=== PATIENT | male | born 1995 | race Two or more races ===

== ENCOUNTER 2024-12-09 02:23 | Emergency (ER) | payer OTHER ==
[~2024-12-09] VITALS: Ht 190.5 cm; Wt 107.3 kg
--- NOTE | 2024-12-09 02:51 | ED.PDOC ---
Back pain HPI HPI Comments C/C: LOWER BACK PAIN SINCE LAST NIGHT AROUND 1700. PATIENT STATES THAT IT IS HARD TO GET UP FROM SITTING OR LAYING POSITION. DENIES TRAUMA OR STRAIN. PER PATIENT, PAIN DOES NOT RADIATE. ALL VSS DENIES NUMBNESS, WEAKNESS, LOSS OF BOWEL BLADDER CONTROL OR SADDLE ANESTHESIA. Time Seen by MD: 02:26 Reviewed Notes: Nurses Notes, Medications, Allergies Allergies: Coded Allergies: NO KNOWN ALLERGIES (Unverified , 12/09/24) Information Source: Patient Past Medical History PAST MEDICAL HISTORY: Denies Surgical History: Denies all surgeries Family History Family History: Reviewed,noncontributory to illness Social History Smoker: Non-Smoker Alcohol: Denies ETOH Use Drugs: Denies Drug Use Constitutional: denies: chills, diaphoresis, fatigue, fever, malaise, sweats, weakness, others EENTM: denies: blurred vision, double vision, ear bleeding, ear discharge, ear drainage, ear pain, ear ringing, eye pain, eye redness, hearing loss, mouth pain, mouth swelling, nasal discharge, nose bleeding, nose congestion, nose pain, photophobia, tearing, throat pain, throat swelling, voice changes, others Respiratory: denies: cough, hemoptysis, orthopnea, SOB at rest, shortness of breath, SOB with excertion, stridor, wheezing, others Cardiovascular: denies: chest pain, dizzy spells, diaphoresis, Dyspnea on exertion, edema, irregular heart beat, left arm pain, lightheadedness, palpita tions, PND, syncope, others Gastrointestinal: denies: abdomen distended, abdominal pain, blood streaked nuvia wels, constipated, diarrhea, dysphagia, difficulty swallowing, hematemesis, melena, nausea, poor appetite, poor fluid intake, rectal bleeding, rectal pain, vomiting, others Genitourinary: denies: burning, dysuria, flank pain, frequency, hematuria, incontinence, penile discharge, penile sore, pain, testicle pain, testicle swelling, urgency, others Neurological: denies: dizziness, fainting, headache, left sided numbness, left sided weakness, numbness, paresthesia, pre-existing deficit, right sided numbness, right sided weakness, seizure, speech problems, tingling, tremors, weakness, others Musculoskeletal: reports: back pain; denies: gout, joint pain, joint swelling, muscle pain, muscle stiffness, neck pain, others Integumetry: denies: bruises, change in color, change in hair/nails, dryness, laceration, lesions, lumps, rash, wounds, others Allergic/Immunocompromised: denies: Difficulty Healing, Frequent Infections, Hives, Itching, others Hematologic/Lymphatic: denies: anemia, blood clots, easy bleeding, easy bruising, swollen glands, others Endocrine: denies: excessive hunger, excessive sweating, excessive thirst, excessive urination, flushing, intolerance to cold, intolerance to heat, unexplained weight gain, unexplained weight loss, others Psychiatric: denies: anxiety, bipolar disorder, depression, hopeless, panic dis order, schizophrenia, sleepless, suicidal, others Physical Exam General Appearance: No Apparent Distress, Normal HEENT: Pharynx Normal Neck: Full Range of Motion, Non-Tender Respiratory: Lungs Clear, No Respiratory Distress, Normal Breath Sounds Cardiovascular: No Murmur, Normal Peripheral Pulses, Regular Rate/Rhythm Breast Exam: Deferred Gastrointestinal: Non Tender, Soft Genitalia: Deferred Pelvic: Deferred Rectal: Deferred Extremities: Normal capillary refill, Normal inspection, Normal range of motion, Non-tender, No pedal edema Musculoskeletal : Location: Left Extremity Location: Back (MODERATE TENDERNESS ON PALPATION LEFT LOWER BACK MUSCULATURE NOTED TENDERNESS L 1 THROUGH L3 LEFT SIDE PARASPINAL MUSCLES. STRENGTH SENSORY MOTION INTACT.) Apperance: Normal Neurologic: Alert, No Motor Deficits, Normal Affect, Normal Mood, No Sensory Deficits Cerebellar Function: Normal Reflexes: Normal Skin: Dry, Normal Color, Warm Lymphatic: No Adenopathy Was a procedure done? Was a procedure done?: No Back Pain Differential Dx Differential Diagnosis: Fracture, Musculoskeletal Pain X-Ray, Labs, Meds, VS Vital Signs Date Time Temp Pulse Resp B/P (MAP) Pulse Ox O2 Delivery O2 Flow Rate FiO2 12/09/24 03:27 98.0 84 16 128/87 (101) 97 98.0 12/09/24 03:27 84 16 97 Room Air* 0 21 12/09/24 03:27 98.0 84 16 128/87 (101) 97 98.0 X-Ray, Labs, Meds, VS Comment LUMBAR SPINE X-RAY SHOWS NO ACUTE FRACTURES, OSSEOUS LESIONS, SUBLUXATIONS. LIKELY LUMBAR MUSCLE STRAIN. PATIENT GIVEN TORADOL 60 MG IM, DECADRON 10 MG IM, AND PERCOCET 10 MG P.O. REPORTS IMPROVEMENT IN PAIN AND FUNCTION REQUESTING DISCHARGE AT THIS TIME. SCRIPT TRIAL OF MUSCLE RELAXER AND MEDROL DOSEPAK ADVISED TO TAKE MEDICATIONS PRESCRIBED SIDE EFFECTS DISCUSSED. DISCUSSED ALTERNATING BETWEEN ICE AND HEAT. FOLLOW UP WITH YOUR PCP IN 2-3 DAYS N ECESSARY IF PAIN PERSISTS CONSIDER FURTHER IMAGING SUCH MRI. ADVISED ON ER RETURN PRECAUTIONS SUCH LOSS OF BOWEL BLADDER CONTROL SADDLE ANESTHESIA OR ANY CONCERNING SYMPTOMS. PATIENT INDICATES UNDERSTANDING AND AGREES WITH DISCHARGE PLAN OF CARE. Time of 1ST Reevaluation: 02:48 Reevaluation 1ST: Unchanged Time of 2ND Reevaluation: 05:25 Reevaluation 2ND: Improved Patient Education/Counseling: Diagnosis, Treatment, Prognosis, Need For Follow Up Family Education/Counseling: Diagnosis, Treatment, Prognosis, Need For Follow Up SEPSIS Sepsis Screen Physician Orders Lumbar Spine 3 View (12/09/24 02:51) Vital Signs Date Time Temp Pulse Resp B/P (MAP) Pulse Ox O2 Delivery O2 Flow Rate FiO2 12/09/24 03:27 98.0 84 16 128/87 (101) 97 98.0 12/09/24 03:27 84 16 97 Room Air* 0 21 12/09/24 03:27 98.0 84 16 128/87 (101) 97 98.0 Departure 1 Departure Time of Disposition: 05:26 Impression: Primary Impression: Lumbar sprain Qualified Codes: S33.5XXA - Sprain of ligaments of lumbar spine, initial encounter Disposition: HOME / SELF CARE / HOMELESS Condition: Stable e-Prescriptions Methylprednisolone (Medrol Dosepak) 4 Mg Rod 4 MG PO UD for 6 Days, #21 TAB UAD Prov: KATH PAINTING 12/09/24 Tizanidine Hydrochloride (Tizanidine Hcl) 4 Mg Tab 4 MG PO BID PRN for 5 Days, #10 TAB Prov: KATH PAINTING 12/09/24 Discharged With: Spouse Critical Care Note Critical Care Time?: No Stability Stability form required: KATH Soria Dec 09, 2024 02:51
[2024-12-09 03:27] VITALS: PULSE 84; RESP 16; O2SAT 97
--- NOTE | 2024-12-09 03:34 | DVH ---
INDICATION: LOW BACK PAIN COMPARISON: None TECHNIQUE: 2 views of the lumbar spine were obtained. FINDINGS: The lumbar vertebral alignment is normal. The intervertebral disc spaces are well-maintained. No significant facet arthropathy is noted. No acute fracture, vertebral compression deformity or aggressive osseous lesions. The paravertebral soft tissues are grossly unremarkable. IMPRESSION: 1. No acute fracture.
[2024-12-09 05:23] VITALS: BP 145/84; PULSE 69; RESP 18; TEMP 97.9; O2SAT 100
[2024-12-09] MEDS ORDERED: TIZA-142 PO (05:25)
[2024-12-09] MEDS ORDERED: METH4PAK PO (05:25)
[2024-12-09] MEDS: OXYCODONE W/ ACETAMINOPHEN 5/325MG TABLET PO ONE (05:28)
[2024-12-09] MEDS: DexAMETHasone SOD PHOS 10MG/1ML VIAL INJ IM ONE (05:28)
[2024-12-09] MEDS: KETOROLAC TROMETH 60MG/2ML VIAL IM ONE (05:28)
== END 2024-12-09 05:50 | disposition home or self-care (01) ==
LOC: ER 02:23
DX: S33.5XXA Sprain of ligaments of lumbar spine, initial encounter (principal); X58.XXXA Exposure to other specified factors, initial encounter; Y93.89 Activity, other specified; Y92.89 Other specified places as the place of occurrence of the external cause; Y99.8 Other external cause status
CPT/HCPCS: 72100; 96372; 99284; J1100; J1885